=== PATIENT | male | born 2000 | race Two or more races ===

== ENCOUNTER 2021-02-08 09:43 | Emergency (ER) | payer OTHER ==
[~2021-02-08] VITALS: Ht 175.3 cm; Wt 90.0 kg
[2021-02-08 12:37] VITALS: BP 135/78
== END 2021-02-08 13:24 | disposition home or self-care (01) ==
LOC: EMS 09:43
DX: R10.31 Right lower quadrant pain (principal)
CPT/HCPCS: 74018; 99283

== ENCOUNTER 2021-05-04 15:43 | Emergency (ER) | payer OTHER ==
[~2021-05-04] VITALS: Ht 178.8 cm; Wt 95.0 kg
[2021-05-04 17:30] VITALS: BP 118/71
== END 2021-05-04 18:09 | disposition home or self-care (01) ==
LOC: EMS 15:43
DX: H60.12 Cellulitis of left external ear (principal)
CPT/HCPCS: 99283; Z7502